=== PATIENT | female | born 1980 | race African-American/Black ===

== ENCOUNTER 2017-06-14 06:28 | Emergency (ER) | payer MEDICAID, OTHER ==
[~2017-06-14] VITALS: Ht 165.1 cm; Wt 75.0 kg
[2017-06-14] MEDS ORDERED: LORAZEPAM 2MG/ML CPJ IV ONE (07:00)
[2017-06-14 07:18] LABS: CLARITY URINE CLEAR (CLEAR); COLOR URINE YELLOW (YELLOW); GLUCOSE URINE NEGATIVE (NEGATIVE); KETONES URINE TRACE (NEGATIVE); LEUKOCYTE ESTERASE URINE NEGATIVE (NEGATIVE); NITRITE URINE NEGATIVE (NEGATIVE); OCCULT BLOOD URINE TRACE (NEGATIVE); PROTEIN URINE TRACE (NEGATIVE); SPECIFIC GRAVITY URINE 1.013 (1.005-1.030)
[2017-06-14 07:22] LABS: BASOPHILS % 0.5 % (0.0-2.0); EOSINOPHILS % 1.4 % (0.0-5.0); HEMOGLOBIN. 13.3 g/dL (12.0-16.0); MEAN CORPUSCULAR HEMOGLOBIN 30.8 pg (28.0-32.0); MEAN CORPUSCULAR VOLUME 90.5 fL (81.0-99.0); MEAN PLATELET VOLUME 8.6 fl (7.4-10.4); MONOCYTES % 13.4 % (2.0-8.0); NEUTROPHILS % 71.7 % (40.0-76.0); PLATELET 166 x1000/uL (130-400); RED BLOOD CELL COUNT 4.31 mill/uL (4.2-5.4); RED CELL DISTRIBUTION WIDTH 13.6 % (11.6-14.6)
[2017-06-14 07:27] LABS: PROTHROMBIN TIME 10.9 sec (9.4-11.6)
[2017-06-14] MEDS ORDERED: ASPIRIN 325MG EC TABLET PO ONE (07:30)
[2017-06-14] MEDS ORDERED: TETANUS, DIPHTHERIA, PERTUSSIS VAC/PF 0.5ML (>7YR OLD) IM ONE (07:30)
[2017-06-14 07:38] LABS: CARBON DIOXIDE 28 mEq/L (21-32); CHLORIDE 94 mEq/L (98-107); TROPONIN I < 0.02 ng/mL (0.00-0.04)
[2017-06-14] MEDS ORDERED: POTASSIUM CHLORIDE INJ 40 MEQ in DEXT 5% WATER 500 ML IV ONE (08:15)
[2017-06-14] MEDS ORDERED: POTASSIUM CHLORIDE 20MEQ TABLET SR PO ONE (08:15)
[2017-06-14] MEDS ORDERED: SODIUM CHLORIDE 0.9% 1,000 ML IV ONE (09:45)
[2017-06-14 13:09] LABS: CHLORIDE 99 mEq/L (98-107)
[2017-06-14 13:14] LABS: CARBON DIOXIDE 27 mEq/L (21-32)
[2017-06-14 13:41] VITALS: BP 132/80
== END 2017-06-14 13:58 | disposition home or self-care (01) ==
LOC: ER 06:28
DX: R07.89 Other chest pain (principal); F14.10 Cocaine abuse, uncomplicated; E87.6 Hypokalemia
CPT/HCPCS: 36415; 71010; 80048; 80053; 81001; 81025; 83880; 84484; 85025; 85610; 90471; 90715; 93005; 96365; 96366; 96375; 99285; J2060; J3480; J7030; Z7610; 99406; J7060

== ENCOUNTER 2018-11-14 20:26 | Emergency (ER) | payer OTHER, MEDICAID ==
[~2018-11-14] VITALS: Ht 165.1 cm; Wt 86.0 kg
[2018-11-14] MEDS ORDERED: SODIUM CHLORIDE 0.9% 1,000 ML IV ONE (20:57)
[2018-11-14 21:25] LABS: CLARITY URINE CLEAR (CLEAR); COLOR URINE YELLOW (YELLOW); KETONES URINE NEGATIVE (NEGATIVE); LEUKOCYTE ESTERASE URINE NEGATIVE (NEGATIVE); NITRITE URINE NEGATIVE (NEGATIVE); OCCULT BLOOD URINE NEGATIVE (NEGATIVE); PROTEIN URINE NEGATIVE (NEGATIVE); SPECIFIC GRAVITY URINE 1.003 (1.005-1.030); UROBILINOGEN URINE 0.2 E.U./dL (0.2-1.0)
[2018-11-14 21:37] LABS: *AMPHETAMINES SCREEN URINE NEGATIVE (NEGATIVE); CANNABINOID URINE SCREEN NEGATIVE (NEGATIVE)
[2018-11-14 21:38] LABS: *BARBITURATES SCREEN URINE NEGATIVE (NEGATIVE); *BENZODIAZEPINES SCREEN URINE NEGATIVE (NEGATIVE); *COCAINE SCREEN URINE NEGATIVE (NEGATIVE); METHADONE URINE SCREEN NEGATIVE (NEGATIVE); OPIATES URINE SCREEN NEGATIVE (NEGATIVE); PHENCYCLIDINE URINE SCREEN NEGATIVE (NEGATIVE)
[2018-11-15 05:12] VITALS: BP 118/83
== END 2018-11-15 05:14 | disposition home or self-care (01) ==
LOC: ER 20:26
DX: F10.129 Alcohol abuse with intoxication, unspecified (principal); Y90.9 Presence of alcohol in blood, level not specified
CPT/HCPCS: 80305; 81003; 81025; 82962; 96360; 96361; 99283; J7030; Z7610

== ENCOUNTER 2018-12-16 16:18 | Emergency (ER) | payer MEDICAID, OTHER | END 2018-12-16 17:00 | disposition left against medical advice (07) | LOC: ER 16:18 | DX: N63.0 Unspecified lump in unspecified breast (principal); Z53.21 Procedure and treatment not carried out due to patient leaving prior to being seen by health care provider ==